=== PATIENT | female | born 1965 | race Caucasian/White ===

== ENCOUNTER 2016-07-01 19:25 | Emergency (ER) | payer MEDICAID ==
[~2016-07-01] VITALS: Ht 160 cm; Wt 65.8 kg
[~2016-07-01 19:25] MED LIST: IBUPROFEN800 MG PO; INSULIN HUMA100 U/ML IJ; NOVOLIN R100 U/ML SUBQ
[2016-07-01 19:36] VITALS: BP 169/93
--- NOTE | 2016-07-01 20:26 | NUR ---
Patient ambulated to bed 08.
[2016-07-01] MEDS ORDERED: HYDROcodone/APAP 5/325 MG 1 TAB TAB PO ONE (20:30)
--- NOTE | 2016-07-01 20:49 | NUR ---
50Y F PRESENTED IN ER C/O OF PAIN TO RT MID FINGER. PT DONT KNOW WHAT HAPPENED TO IT. PAIN 10/10 IN SCALE.
--- NOTE | 2016-07-01 21:30 | NUR ---
Patient discharged with v/s stable. Written and verbal after care instructions given and explained BY ANNE Mandel Patient alert, oriented and verbalized understanding of instructions. Ambulatory with steady gait. All questions addressed prior to discharge. ID band removed. Patient advised to follow up with PMD. Rx of NORCO given. Patient educated on indication of medication including possible reaction and side effects. Opportunity to ask questions provided and answered.
[2016-07-01 21:31] VITALS: BP 148/87
== END 2016-07-01 21:30 | disposition home or self-care (01) ==
LOC: MED 19:25
DX: M79.644 Pain in right finger(s) (principal); E11.9 Type 2 diabetes mellitus without complications

== ENCOUNTER 2016-10-30 07:27 | Emergency (ER) | payer MEDICAID ==
[~2016-10-30] VITALS: Ht 157.5 cm; Wt 79.0 kg
[~2016-10-30 07:27] MED LIST changes: -IBUPROFEN800 MG PO; -INSULIN HUMA100 U/ML IJ; -NOVOLIN R100 U/ML SUBQ; +NOVR SUBQ
[2016-10-30 07:48] VITALS: BP 156/87
[2016-10-30] MEDS ORDERED: NACL 0.9% 1,000 ML IV SCH (07:51)
[2016-10-30] MEDS ORDERED: LIDOCAINE VISCOUS 2% 20 ML UDC PO ONE (07:55)
[2016-10-30] MEDS ORDERED: FAMOTIDINE 20 MG/2 ML VIAL IVP ONE (07:55)
[2016-10-30] MEDS ORDERED: BELLADONNA/PHENOBARBITAL 1 TAB PO ONE (07:55)
[2016-10-30] MEDS ORDERED: ONDANSETRON 4 MG/2 ML VIAL IVP ONE ×2 (07:55→08:45)
[2016-10-30] MEDS ORDERED: ALUMINUM HYD/MAG/SIMETHICONE 30 ML UDC PO ONE (07:55)
--- NOTE | 2016-10-30 07:58 | NUR ---
Patient ambulated to bed 04.
--- NOTE | 2016-10-30 08:00 | NUR ---
PATIENT PRESENTS TO ED WITH C/O EPIGASTRIC PAIN X 4 DAYS---WORSE AT NIGHT WHEN LAYING DOWN, HX---GASTRITIS, DM, RX---MOTRIN, INSULIN . DENIES DIARRHEA; SKIN IS PINK/WARM/DRY; AAOX4 WITH EVEN AND STEADY GAIT; LUNGS CLEAR BL; HR EVEN AND REGULAR; PT DENIES ANY FEVER, CP, SOB, OR COUGH AT THIS TIME; PATIENT STATES PAIN OF 9/10 AT THIS TIME; VSS; PATIENT POSITIONED FOR COMFORT; HOB ELEVATED; BEDRAILS UP X2; BED DOWN. ER MD MADE AWARE OF PT STATUS.
[2016-10-30 08:10] LABS: BASOPHILS # (AUTO) 0.1 K/uL (0.00-0.22); EOSINOPHILS # (AUTO) 0.1 K/uL (0-0.4); EOSINOPHILS % (AUTO) 1.3 % (0.0-4.0); HEMATOCRIT 45.4 % (36-48); HEMOGLOBIN 14.9 g/dL (12.0-16.0); LYMPHOCYTES # (AUTO) 2.7 K/uL (2.5-16.5); LYMPHOCYTES % (AUTO) 26.6 % (20.5-51.1); MEAN CORPUSCULAR HEMOGLOBIN 29 pg (27-31); MEAN CORPUSCULAR HGB CONC 33 g/dL (33-37); MEAN CORPUSCULAR VOLUME 89 fL (80-94); MONOCYTES # (AUTO) 0.6 K/uL (0.8-1.0); MONOCYTES % (AUTO) 6.3 % (1.7-9.3); NEUTROPHILS # (AUTO) 6.5 K/uL (1.8-7.7); NEUTROPHILS % (AUTO) 64.8 % (42.2-75.2); PLATELET COUNT (AUTO) 246 K/uL (140-450); RED BLOOD CELL COUNT(AUTO) 5.11 MIL/uL (4.20-5.40); RED CELL DISTRIBUTION WIDTH 12.5 % (11.6-13.7)
[2016-10-30 08:12] LABS: APPEARANCE,URINE CLEAR (CLEAR); BILIRUBIN,URINE NEGATIVE (NEGATIVE); BLOOD, URINE TRACE-L (NEGATIVE); COLOR,URINE YELLOW (YELLOW); LEUKOCYTE ESTERASE ,URINE NEGATIVE (NEGATIVE); NITRITE, URINE NEGATIVE (NEGATIVE); PROTEIN,URINE NEGATIVE (NEGATIVE); UGLUCOSE 3+ (NEGATIVE); UROBILINOGEN,URINE 0.2 EU/dL (0.2 - 1)
[2016-10-30] MEDS ORDERED: DICYCLOMINE HCL LIQUID 10 MG/5 ML UDC PO ONE (08:30)
[2016-10-30 08:45] LABS: ALBUMIN 3.9 g/dL (3.4-5.0); CALCIUM 8.9 mg/dL (8.5-10.1); CARBON DIOXIDE 27.6 mmol/L (21-32); CREATININE 0.9 mg/dL (0.6-1.3); POTASSIUM 3.6 mmol/L (3.5-5.1); TOTAL BILIRUBIN 0.8 mg/dL (0.0-1.0); TOTAL PROTEIN, SERUM 8.6 g/dL (6.4-8.2)
--- NOTE | 2016-10-30 08:47 | NUR ---
2ND 4MG ZOFRAN GIVEN VIA IV LEFT AC 20, PT REFUSE GI COCKTAIL AT THIS TIME, DR RUIZ AWARE
[2016-10-30 09:13] LABS: BACTERIA,URINE RARE /HPF (None Seen); RBC,URINE 0-5 (RARE) /HPF (0-5); SQUAMOUS EPITHELIAL CELL,UR 0-3 (FEW) /LPF (0-3 (FEW)); WBC,URINE 0-5 (RARE) /HPF (0-5)
[2016-10-30] MEDS ORDERED: HYDROmorphone 1 MG/ML AMP IVP ONE (09:40)
--- NOTE | 2016-10-30 09:45 | NUR ---
PT EDUCATED ON GI COCKTAIL MEDS WITH DR RUIZ PT REFUSED MEDS
--- NOTE | 2016-10-30 11:00 | NUR ---
PATIENT FEEELING MUCH BETTER. NO N/V
[2016-10-30 11:01] VITALS: BP 132/75
--- NOTE | 2016-10-30 11:01 | NUR ---
Patient discharged with v/s stable. Written and verbal after care instructions given and explained. Patient alert, oriented and verbalized understanding of instructions. Ambulatory with steady gait. All questions addressed prior to discharge. ID band removed. Patient advised to follow up with PMD. Rx of BENTYL,RANITIDINE given. Patient educated on indication of medication including possible reaction and side effects. Opportunity to ask questions provided and answered.
== END 2016-10-30 11:01 | disposition home or self-care (01) ==
LOC: MED 07:27
DX: R10.13 Epigastric pain (principal); E11.9 Type 2 diabetes mellitus without complications; Z87.19 Personal history of other diseases of the digestive system; K21.9 Gastro-esophageal reflux disease without esophagitis
CPT/HCPCS: 36415; 80053; 81001; 81025; 82150; 82948; 83690; 85025; 96361; 96374; 96375; 96376; 99285; J1170; J2405; J3490

== ENCOUNTER 2018-05-22 15:00 | Emergency (ER) | payer MEDICAID ==
[~2018-05-22] VITALS: Ht 154.9 cm; Wt 76.7 kg
[~2018-05-22 15:00] MED LIST changes: +LANTUS SUBQ; -NOVR SUBQ
[2018-05-22 15:04] VITALS: BP 146/86
[2018-05-22] MEDS ORDERED: PROMETHAZINE 25 MG/ML VIAL IM ONE (15:30)
[2018-05-22] MEDS ORDERED: KETOROLAC 60 MG/2 ML VIAL IM ONE (15:30)
[2018-05-22] MEDS ORDERED: METOCLOPRAMIDE 10 MG/2 ML INJ VIAL IM ONE (17:15)
[2018-05-22 18:17] VITALS: BP 138/75
== END 2018-05-22 18:18 | disposition home or self-care (01) ==
LOC: MED 15:00
DX: G44.209 Tension-type headache, unspecified, not intractable (principal); R42 Dizziness and giddiness; E11.9 Type 2 diabetes mellitus without complications; K21.9 Gastro-esophageal reflux disease without esophagitis; Z79.4 Long term (current) use of insulin
CPT/HCPCS: 70450; 96372; 99284; J1885; J2550; J2765

== ENCOUNTER 2018-09-21 09:00 | Emergency (ER) | payer MEDICAID ==
[~2018-09-21] VITALS: Ht 157.5 cm; Wt 74.8 kg
--- NOTE | 2018-09-21 09:07 | NUR ---
Patient ambulated to bed 4. RN evaluating patient at bedside.
--- NOTE | 2018-09-21 09:09 | NUR ---
Dr. Starr evaluating patient at bedside.
[2018-09-21 09:10] VITALS: BP 132/74
--- NOTE | 2018-09-21 09:15 | NUR ---
52 Y.O F BIB SELF C/O 02/28 SHARP RIGHT LOWER BACK PAIN RADIATING TO THE RIGHT LOWER EXTREMITY. DENIES N/V/D. AFEBRILE. DENIES DYSURIA. PMH OF KIDNEY STONES, DM. RX REGULAR INSULIN.
[2018-09-21] MEDS ORDERED: ONDANSETRON 4 MG/2 ML VIAL IVP ONE (09:45)
[2018-09-21] MEDS ORDERED: KETOROLAC 15 MG/ML VIAL IVP ONE (09:45)
[2018-09-21 10:01] LABS: BASOPHILS % (AUTO) 0.6 % (0.0-2.0); EOSINOPHILS # (AUTO) 0.1 K/uL (0-0.4); EOSINOPHILS % (AUTO) 1.5 % (0.0-4.0); HEMATOCRIT 38.7 % (36-48); HEMOGLOBIN 13.4 g/dL (12.0-16.0); LYMPHOCYTES # (AUTO) 1.7 K/uL (2.5-16.5); LYMPHOCYTES % (AUTO) 24.2 % (20.5-51.1); MEAN CORPUSCULAR HEMOGLOBIN 31 pg (27-31); MEAN CORPUSCULAR HGB CONC 35 g/dL (33-37); MONOCYTES # (AUTO) 0.5 K/uL (0.8-1.0); MONOCYTES % (AUTO) 7.1 % (1.7-9.3); NEUTROPHILS # (AUTO) 4.7 K/uL (1.8-7.7); NEUTROPHILS % (AUTO) 66.6 % (42.2-75.2); PLATELET COUNT (AUTO) 229 K/uL (140-450); RED BLOOD CELL COUNT(AUTO) 4.35 MIL/uL (4.20-5.40); RED CELL DISTRIBUTION WIDTH 13.3 % (11.6-13.7)
[2018-09-21 10:06] LABS: APPEARANCE,URINE CLEAR (CLEAR); BILIRUBIN,URINE NEGATIVE (NEGATIVE); BLOOD, URINE NEGATIVE (NEGATIVE); COLOR,URINE YELLOW (YELLOW); LEUKOCYTE ESTERASE ,URINE NEGATIVE (NEGATIVE); NITRITE, URINE NEGATIVE (NEGATIVE); PH,URINE 6.5 (5.0-9.0); UGLUCOSE 2+ (NEGATIVE)
--- NOTE | 2018-09-21 10:10 | NUR ---
PT TO CT VIA W/C IN STABLE CONDITION
[2018-09-21 10:19] LABS: ALBUMIN 3.4 g/dL (3.4-5.0); ANION GAP 10.9 (8-16); CREATININE 0.8 mg/dL (0.6-1.3); POTASSIUM 3.9 mmol/L (3.5-5.1); TOTAL BILIRUBIN 0.3 mg/dL (0.0-1.0)
[2018-09-21 12:10] VITALS: BP 128/68
== END 2018-09-21 12:10 | disposition home or self-care (01) ==
LOC: MED 09:00
DX: N20.0 Calculus of kidney (principal); E11.9 Type 2 diabetes mellitus without complications; K21.9 Gastro-esophageal reflux disease without esophagitis; Z79.4 Long term (current) use of insulin
CPT/HCPCS: 36415; 74176; 80053; 81003; 81025; 83690; 85025; 96374; 96375; 99284; J1885; J2405

== ENCOUNTER 2018-09-29 14:38 | Emergency (ER) | payer MEDICAID ==
[~2018-09-29] VITALS: Ht 157.5 cm; Wt 85.7 kg
[2018-09-29 14:43] VITALS: BP 161/84
--- NOTE | 2018-09-29 14:47 | NUR ---
Patient ambulated to bed 2. RN evaluating patient at bedside.
[2018-09-29] MEDS ORDERED: MORPHINE SULFATE 2 MG/ML SYR IVP ONE (15:00)
[2018-09-29] MEDS ORDERED: NACL 0.9% 500 ML IV ONE (15:00)
[2018-09-29] MEDS ORDERED: ONDANSETRON 4 MG/2 ML VIAL IVP ONE (15:00)
--- NOTE | 2018-09-29 15:15 | NUR ---
PT IS A 52 Y/O FEMALE WHO PRESENTS TO THE ED C/O BILATERAL EAR PAIN. PT STATES THAT SHE HAS BILATERAL EAR PAIN X2 DAYS AND HEARS A NOISE INSIDE. NO FOREIGN OBJECTS OR REDNESS NOTED ON INSPECTION. PT REPORTS 8/10 ACHING BILATERAL EAR PAIN THAT DOES NOT RADIATE. PT DENIES CP, SOB, N/V/D. PT AWAKE AND ALERT, RR EVEN/UNLABORED. PT REPOSITIONED FOR COMFORT, BED IN LOWEST POSITION. ER MD DR. SIN NOTIFIED. WILL CONTINUE TO MONITOR. PMH--LITA FELIZ
--- NOTE | 2018-09-29 15:30 | NUR ---
PATIENT RESTING IN BED; NO SIGNS OF DISTRESS.
--- NOTE | 2018-09-29 15:55 | NUR ---
DR. SIN SPEAKING WITH PATIENT.
--- NOTE | 2018-09-29 15:56 | NUR ---
PATIENT STATES THAT DAUGHTER WILL DRIVE HER HOME.
[2018-09-29 16:00] VITALS: BP 152/88
--- NOTE | 2018-09-29 16:00 | NUR ---
Patient discharged with v/s stable. Written and verbal after care instructions given and explained. Patient alert, oriented and verbalized understanding of instructions. Ambulatory with steady gait. All questions addressed prior to discharge. ID band removed. Patient advised to follow up with PMD. Rx of TRAMADOL 50MG, MOTRIN 800MG AND ZOFRAN 4MG given. Patient educated on indication of medication including possible reaction and side effects. Opportunity to ask questions provided and answered.
== END 2018-09-29 16:00 | disposition home or self-care (01) ==
LOC: MED 14:38
DX: R51 Headache (principal); H92.03 Otalgia, bilateral; E11.9 Type 2 diabetes mellitus without complications; K21.9 Gastro-esophageal reflux disease without esophagitis; Z79.4 Long term (current) use of insulin
CPT/HCPCS: 36415; 70450; 87040; 96374; 96375; 99284; J2270; J2405; J7030

== ENCOUNTER 2018-11-01 13:41 | Emergency (ER) | payer MEDICAID ==
[~2018-11-01] VITALS: Ht 157.5 cm; Wt 74.8 kg
[2018-11-01 13:49] VITALS: BP 145/77
--- NOTE | 2018-11-01 13:50 | NUR ---
TO LOBBY WITH VSS AWAITING BED IN DEPT.
--- NOTE | 2018-11-01 13:57 | NUR ---
TO ED 11 WITH STEADY GAIT.
--- NOTE | 2018-11-01 13:59 | NUR ---
PT TO ED WITH C/O LOWER BACK PAIN X 1 WEEK S/P FALL. PT DENIES LOC. +ROM. ABLE TO AMBULATE WITHOUT ASSIST. NO DEFORMITY NOTED. PT PLACED INTO BED, PENDING MD REDDY.
--- NOTE | 2018-11-01 13:59 | NUR ---
DR. MODI BEDSIDE EVALUATING PT
[2018-11-01] MEDS ORDERED: HYDROcodone/APAP 5/325 MG 1 TAB TAB PO ONE (14:15)
[2018-11-01 16:39] VITALS: BP 138/72
== END 2018-11-01 16:54 | disposition home or self-care (01) ==
LOC: MED 13:41
DX: M54.5 Low back pain (principal); E11.9 Type 2 diabetes mellitus without complications; K21.9 Gastro-esophageal reflux disease without esophagitis; Z79.4 Long term (current) use of insulin; Z87.442 Personal history of urinary calculi
CPT/HCPCS: 72100; 99283

== ENCOUNTER 2018-11-30 10:00 | Emergency (ER) | payer MEDICAID ==
[~2018-11-30] VITALS: Ht 157.5 cm; Wt 87.1 kg
[2018-11-30 10:05] VITALS: BP 163/89
--- NOTE | 2018-11-30 10:11 | NUR ---
52 Y FEMALE BIB SELF C/O LT FLANK PAIN X1 MONTH. CONSTANT SHARP PAIN AT 10/10 THAT RADIATES TO BACK. +NAUSEA. -FEVER OR DIARRHEA. DENIES DYSURIA. SAW PCP ON MONDAY WAS GIVEN IBUPROFEN. URINE CLEAR AND COLORED YELLOW. BP 163/89. AA0X4. BED IS DOWN, LOCKED, BED RAIL X 1, ERMD TO SEE PT. MEDHX:DM RX:INSULIN
--- NOTE | 2018-11-30 10:14 | NUR ---
accu check [id number]. completed by robin harris
[2018-11-30] MEDS ORDERED: IBUP-2213 PO (10:40)
--- NOTE | 2018-11-30 11:00 | NUR ---
Dr. Garcia evaluating patient at bedside.
[2018-11-30] MEDS ORDERED: NACL 0.9% 1,000 ML IV SCH (11:01)
[2018-11-30] MEDS ORDERED: KETOROLAC 30 MG/ML VIAL IVP ONE (11:05)
--- NOTE | 2018-11-30 11:06 | NUR ---
PT BEING TAKEN TO CT VIA WHEELCHAIR
--- NOTE | 2018-11-30 11:06 | NUR ---
Patient taken to CT scan via wheelchair by tech.
--- NOTE | 2018-11-30 11:13 | NUR ---
PT RETURNED FROM CT
--- NOTE | 2018-11-30 11:20 | NUR ---
20 G R THUMB INSERTED. LABS DRAWN BEDSIDE AND HANDED TO TRAVEL RN OR
[2018-11-30 11:43] LABS: BASOPHILS % (AUTO) 0.4 % (0.0-2.0); EOSINOPHILS # (AUTO) 0.1 K/uL (0-0.4); EOSINOPHILS % (AUTO) 1.1 % (0.0-4.0); HEMATOCRIT 39.5 % (36-48); HEMOGLOBIN 13.7 g/dL (12.0-16.0); LYMPHOCYTES # (AUTO) 2.6 K/uL (2.5-16.5); LYMPHOCYTES % (AUTO) 32.4 % (20.5-51.1); MEAN CORPUSCULAR HEMOGLOBIN 31 pg (27-31); MEAN CORPUSCULAR HGB CONC 35 g/dL (33-37); MEAN CORPUSCULAR VOLUME 88.3 fL (80-94); MONOCYTES # (AUTO) 0.5 K/uL (0.8-1.0); MONOCYTES % (AUTO) 5.8 % (1.7-9.3); NEUTROPHILS # (AUTO) 4.8 K/uL (1.8-7.7); NEUTROPHILS % (AUTO) 60.3 % (42.2-75.2); PLATELET COUNT (AUTO) 232 K/uL (140-450); RED BLOOD CELL COUNT(AUTO) 4.47 MIL/uL (4.20-5.40); RED CELL DISTRIBUTION WIDTH 13.6 % (11.6-13.7); WHITE BLOOD COUNT (AUTO) 7.9 K/uL (4.8-10.8)
[2018-11-30 11:58] LABS: ALBUMIN 3.5 g/dL (3.4-5.0); ANION GAP 15.1 (8-16); CARBON DIOXIDE 25.6 mmol/L (21-32); CREATININE 0.8 mg/dL (0.6-1.3); POTASSIUM 3.7 mmol/L (3.5-5.1); TOTAL BILIRUBIN 0.4 mg/dL (0.0-1.0)
--- NOTE | 2018-11-30 12:11 | NUR ---
PT C/O PAIN 02/28. DR SHARMA NOTIFIED.
[2018-11-30 12:14] VITALS: BP 120/70
[2018-11-30] MEDS ORDERED: MORPHINE SULFATE 4 MG/ML SYR IVP ONE (12:15)
[2018-11-30 12:17] LABS: APPEARANCE,URINE CLEAR (CLEAR); BILIRUBIN,URINE NEGATIVE (NEGATIVE); BLOOD, URINE NEGATIVE (NEGATIVE); COLOR,URINE YELLOW (YELLOW); LEUKOCYTE ESTERASE ,URINE NEGATIVE (NEGATIVE); NITRITE, URINE NEGATIVE (NEGATIVE); PH,URINE 6.5 (5.0-9.0); UGLUCOSE 2+ (NEGATIVE)
--- NOTE | 2018-11-30 12:28 | NUR ---
MORPHINE IVP ADMINISTERED
[2018-11-30 12:35] LABS: WBC,URINE 0-5 /HPF (0-5)
[2018-11-30 12:36] LABS: RBC,URINE NONE SEEN /HPF (0-5)
--- NOTE | 2018-11-30 13:55 | NUR ---
Patient discharged BY DR SHARMA. Patient alert AND Ambulatory with steady gait. ID band removed. Rx of NAPROSYN given.
== END 2018-11-30 13:55 | disposition home or self-care (01) ==
LOC: MED 10:00
DX: N20.0 Calculus of kidney (principal); E11.9 Type 2 diabetes mellitus without complications; K21.9 Gastro-esophageal reflux disease without esophagitis; Z87.442 Personal history of urinary calculi; Z79.4 Long term (current) use of insulin; Z79.899 Other long term (current) drug therapy
CPT/HCPCS: 36415; 74176; 80053; 81001; 81025; 85025; 96374; 96375; 99284; J1885; J2270; J7030

== ENCOUNTER 2018-12-04 19:21 | Emergency (ER) | payer MEDICAID ==
[~2018-12-04] VITALS: Ht 154.9 cm; Wt 86.4 kg
[~2018-12-04 19:21] MED LIST changes: +IBUP-2213 PO
[2018-12-04 19:25] VITALS: BP 153/78
--- NOTE | 2018-12-04 19:25 | NUR ---
PATIENT TRIAGED. VSS AT THIS TIME. SENT TO ER LOBBY.
--- NOTE | 2018-12-04 19:26 | NUR ---
PATIENT GIVEN URINE CUP FOR SAMPLE. PT UNABLE TO VOID AT THIS TIME.
--- NOTE | 2018-12-04 20:30 | NUR ---
PT AMBULATED TO BED 09.
[2018-12-04] MEDS ORDERED: MORPHINE SULFATE 4 MG/ML SYR IM ONE (20:50)
[2018-12-04] MEDS ORDERED: ONDANSETRON 4 MG ODT PO ONE (20:50)
[2018-12-04 21:09] LABS: BASOPHILS % (AUTO) 0.4 % (0.0-2.0); EOSINOPHILS # (AUTO) 0.2 K/uL (0-0.4); EOSINOPHILS % (AUTO) 2.2 % (0.0-4.0); HEMATOCRIT 38.9 % (36-48); HEMOGLOBIN 13.2 g/dL (12.0-16.0); LYMPHOCYTES # (AUTO) 2.6 K/uL (2.5-16.5); LYMPHOCYTES % (AUTO) 31.5 % (20.5-51.1); MEAN CORPUSCULAR HEMOGLOBIN 30 pg (27-31); MEAN CORPUSCULAR HGB CONC 34 g/dL (33-37); MEAN CORPUSCULAR VOLUME 88.2 fL (80-94); MONOCYTES # (AUTO) 0.7 K/uL (0.8-1.0); MONOCYTES % (AUTO) 8.1 % (1.7-9.3); NEUTROPHILS # (AUTO) 4.8 K/uL (1.8-7.7); NEUTROPHILS % (AUTO) 57.8 % (42.2-75.2); PLATELET COUNT (AUTO) 227 K/uL (140-450); RED BLOOD CELL COUNT(AUTO) 4.41 MIL/uL (4.20-5.40); RED CELL DISTRIBUTION WIDTH 13.9 % (11.6-13.7); WHITE BLOOD COUNT (AUTO) 8.4 K/uL (4.8-10.8)
--- NOTE | 2018-12-04 21:20 | NUR ---
53/F PRESENTS TO ED, C/O INTERMITTENT BURNING EPIGASTRIC PAIN RADIATING TO R SIDE ABD, X1 WEEK. REPORTS NAUSEA. PT DENIES FEVER/CHILLS, VOMITING, CONSTIPATION, DIARRHEA OR DYSURIA. PT AWAKE AND ALERT, SKIN NORMAL WARM AND DRY, RR EVEN AND UNLABORED. LUNG SOUNDS CLEAR BL. BS ACTIVE X4, ABD SOFT ROUND TENDER TO EPIGASTRIC AND R SIDE OF ABD. HX DM, OTC IBUPROFEN WITHOUT RELIEF
--- NOTE | 2018-12-04 21:20 | NUR ---
PT ATTEMPTING TO VOMIT/DRY HEAVING, ZOFRAN ODT GIVEN ORDERED. WILL ADMINISTERED GI COCKTAIL WHEN VOMITING RESOLVES
[2018-12-04] MEDS: DICYCLOMINE HCL LIQUID 20 MG, ALUMINUM HYD/MAG/SIMETHICONE 30 ML, LIDOCAINE VISCOUS 2% ... PO ONE ×6 (21:21→22:10)
--- NOTE | 2018-12-04 21:22 | NUR ---
PT WAS SEEN 4 DAYS AGO, DX RENAL STONES
[2018-12-04 21:23] LABS: ANION GAP 11.4 (8-16); POTASSIUM 3.4 mmol/L (3.5-5.1)
[2018-12-04 21:27] LABS: ALBUMIN 3.3 g/dL (3.4-5.0); TOTAL BILIRUBIN 0.3 mg/dL (0.0-1.0)
[2018-12-04] MEDS ORDERED: LORazepam 2 MG/ML VIAL IM ONE (22:00)
--- NOTE | 2018-12-04 22:10 | NUR ---
PT REPORTS IMPROVEMENT IN NAUSEA, ABLE TO TOLERATE JUICE, ADMINISTERED GI COCKTAIL WITH EDUCATION. NO ACTIVE VOMITING NOTED, PT ABLE TO TOLERATE MED. ALSO ADMINISTERED ATIVAN IM WITH EDUCATION, PT TOLERATED WELL.
--- NOTE | 2018-12-04 22:32 | NUR ---
PT REPORTS IMPROVEMENT IN NAUSEA AND ABD PAIN. DR ZACARIAS MADE AWARE.
[2018-12-04 22:33] VITALS: BP 112/75
--- NOTE | 2018-12-04 22:33 | NUR ---
Patient discharged with v/s stable. Written and verbal after care instructions given and explained. Patient alert, oriented and verbalized understanding of instructions. Ambulatory with steady gait. All questions addressed prior to discharge. ID band removed. Patient advised to follow up with PMD. Rx of NORCO, COLACE given. Patient educated on indication of medication including possible reaction and side effects. Opportunity to ask questions provided and answered.
== END 2018-12-04 22:33 | disposition home or self-care (01) ==
LOC: MED 19:21
DX: R10.13 Epigastric pain (principal); R11.2 Nausea with vomiting, unspecified; E11.9 Type 2 diabetes mellitus without complications; K21.9 Gastro-esophageal reflux disease without esophagitis; Z79.4 Long term (current) use of insulin; Z79.899 Other long term (current) drug therapy; Z88.8 Allergy status to other drugs, medicaments and biological substances
CPT/HCPCS: 36415; 80053; 81002; 83690; 84484; 85025; 93005; 96372; 99284; J2060; J2270; Q0162

== ENCOUNTER 2019-07-05 08:24 | Emergency (ER) | payer MEDICAID ==
[~2019-07-05] VITALS: Ht 152.4 cm; Wt 87.1 kg
[2019-07-05 08:36] VITALS: BP 137/74
--- NOTE | 2019-07-05 08:42 | NUR ---
PATIENT AMBULATED WITH STEADY GAIT TO BED 5.
--- NOTE | 2019-07-05 08:50 | NUR ---
53YO F C/O LEFT ARM AND SHOULDER PAIN X 1 WEEK. PT STATES BURNING PAIN OF 10/10 RADIATING TO HER LOWER BACK AND FLANK AREAS. PT TOOK TYLENOL, WHICH PROVIDED NO RELIEF. DENIES ANY TRAUMA OR INJURY. NO CHEST PAIN, NO . VSS. PATIENT POSITIONED IN BED COMFORTABLY. ERMD MADE AWARE OF PT STATUS. PMH: DM MEDS: INSULIN ALLERGY: IBUPROFEN, NAPROXEN
[2019-07-05] MEDS ORDERED: DEXAMETHASONE 4 MG/ML VIAL PO ONE (09:00)
[2019-07-05] MEDS ORDERED: CYCLOBENZAPRINE 10 MG TAB PO ONE (09:00)
[2019-07-05] MEDS ORDERED: ONDANSETRON 4 MG ODT PO ONE (09:00)
[2019-07-05] MEDS ORDERED: MORPHINE SULFATE 10 MG/ML VIAL IM ONE (09:00)
[2019-07-05] MEDS ORDERED: ACETAMINOPHEN 325 MG TAB PO ONE (09:20)
--- NOTE | 2019-07-05 09:34 | NUR ---
PT GIVEN ORDERED MEDICATIONS, REFUSED TYLENOL, STATED SHE TOOK IT ALLREADY THIS MORNING PRIOR TO ED ARRIVAL. PT TOLERATED MEDICAITON WELL, WILL CONTINUE TO MONITOR.
--- NOTE | 2019-07-05 10:12 | NUR ---
PT RESTING COMFORTABLY, VSS. PT STATES PAIN HAS GONE DOWN TO 5/10. PT GIVEN BLANKET, LIGHTS DIMMED.
[2019-07-05] MEDS ORDERED: NACL 0.9% 1,000 ML IV ONE (11:20)
[2019-07-05] MEDS ORDERED: MORPHINE SULFATE 4 MG/ML SYR IVP ONE (11:20)
[2019-07-05 11:40] LABS: BASOPHILS % (AUTO) 0.6 % (0.0-2.0); EOSINOPHILS # (AUTO) 0.1 K/uL (0-0.4); EOSINOPHILS % (AUTO) 1.1 % (0.0-4.0); HEMATOCRIT 42.1 % (36-48); HEMOGLOBIN 14.4 g/dL (12.0-16.0); LYMPHOCYTES # (AUTO) 1.2 K/uL (2.5-16.5); LYMPHOCYTES % (AUTO) 14.5 % (20.5-51.1); MEAN CORPUSCULAR HEMOGLOBIN 31 pg (27-31); MEAN CORPUSCULAR HGB CONC 34 g/dL (33-37); MEAN CORPUSCULAR VOLUME 91.6 fL (80-94); MONOCYTES # (AUTO) 0.2 K/uL (0.8-1.0); MONOCYTES % (AUTO) 2.5 % (1.7-9.3); NEUTROPHILS # (AUTO) 6.5 K/uL (1.8-7.7); NEUTROPHILS % (AUTO) 81.3 % (42.2-75.2); PLATELET COUNT (AUTO) 232 K/uL (140-450); WHITE BLOOD COUNT (AUTO) 7.9 K/uL (4.8-10.8)
[2019-07-05 11:48] LABS: ANION GAP 11.1 (8-16); CARBON DIOXIDE 27.1 mmol/L (21-32); CREATININE 0.8 mg/dL (0.6-1.3); POTASSIUM 4.2 mmol/L (3.5-5.1)
[2019-07-05 11:54] LABS: ALBUMIN 3.6 g/dL (3.4-5.0); TOTAL BILIRUBIN 0.3 mg/dL (0.0-1.0)
--- NOTE | 2019-07-05 12:43 | NUR ---
PT AMBULATED TO RESTROOM W/O DIFFICULTY. PT STATED NO PAIN AT THIS TIME.
[2019-07-05 14:19] VITALS: BP 124/72
--- NOTE | 2019-07-05 14:19 | NUR ---
Patient discharged with v/s stable. Written and verbal after care instructions given and explained. Patient alert, oriented and verbalized understanding of instructions. Ambulatory with steady gait. All questions addressed prior to discharge. ID band removed. Patient advised to follow up with PMD. Rx of FLEXERIL, TRAMADOL given. Patient educated on indication of medication including possible reaction and side effects. Opportunity to ask questions provided and answered.
== END 2019-07-05 14:19 | disposition home or self-care (01) ==
LOC: MED 08:24
DX: M62.830 Muscle spasm of back (principal); E11.9 Type 2 diabetes mellitus without complications; K21.9 Gastro-esophageal reflux disease without esophagitis; Z79.4 Long term (current) use of insulin; Z79.899 Other long term (current) drug therapy; Z88.6 Allergy status to analgesic agent
CPT/HCPCS: 36415; 71045; 80053; 82948; 85025; 85379; 96372; 96374; 99284; J1100; J2270; Q0092; Q0162; J7030

== ENCOUNTER 2019-07-19 13:04 | Emergency (ER) | payer MEDICAID ==
[~2019-07-19] VITALS: Ht 157.5 cm; Wt 86.2 kg
--- NOTE | 2019-07-19 13:14 | NUR ---
PT TO ER BED 8
[2019-07-19 13:19] VITALS: BP 128/81
[2019-07-19] MEDS ORDERED: NACL 0.9% 500 ML IV ONE (13:33)
--- NOTE | 2019-07-19 13:33 | NUR ---
53 Y/O FEMALE PRESENTS TO ER WITH RIGHT SIDE FLANK PAIN RATED 10/10 X 3 DAYS. PT WAS SEEN PCP 07/18/2019, BUT PAIN STILL PERSISTS. PT HAS PMH OF KIDNEY STONES. C/O RIGHT FLANK PAIN, AND TTP, AND NAUSEA. DENIES VOMITING, DIARRHEA. TOOK TYLENOL BEFORE COMING INTO ER. DENIES ANY INJURIES OR TRAUMA. WILL CONTINUE TO MONITOR, SIDE RAIL X1 PMH: DM I ALLERGIES: IBUPROFEN; NAPROXEN
[2019-07-19] MEDS ORDERED: ONDANSETRON 4 MG/2 ML VIAL IVP ONE (13:35)
[2019-07-19] MEDS ORDERED: MORPHINE SULFATE 2 MG/ML SYR IVP ONE (13:35)
--- NOTE | 2019-07-19 13:36 | NUR ---
PT TO CT VIA WHEELCHAIR
--- NOTE | 2019-07-19 13:40 | NUR ---
Meghan jara in [facility] - 07/19/19 at 1348 by [facility]SV PT TO ER BED 11
[2019-07-19 14:24] LABS: BASOPHILS % (AUTO) 0.6 % (0.0-2.0); EOSINOPHILS # (AUTO) 0.1 K/uL (0-0.4); EOSINOPHILS % (AUTO) 1.3 % (0.0-4.0); HEMATOCRIT 41.9 % (36-48); HEMOGLOBIN 14.8 g/dL (12.0-16.0); LYMPHOCYTES # (AUTO) 2.3 K/uL (2.5-16.5); MEAN CORPUSCULAR HEMOGLOBIN 32 pg (27-31); MEAN CORPUSCULAR HGB CONC 35 g/dL (33-37); MEAN CORPUSCULAR VOLUME 88.8 fL (80-94); MONOCYTES # (AUTO) 0.5 K/uL (0.8-1.0); MONOCYTES % (AUTO) 6.7 % (1.7-9.3); NEUTROPHILS # (AUTO) 4.3 K/uL (1.8-7.7); NEUTROPHILS % (AUTO) 59.4 % (42.2-75.2); PLATELET COUNT (AUTO) 244 K/uL (140-450); RED BLOOD CELL COUNT(AUTO) 4.71 MIL/uL (4.20-5.40); WHITE BLOOD COUNT (AUTO) 7.3 K/uL (4.8-10.8)
--- NOTE | 2019-07-19 14:33 | NUR ---
PT STATES DECREASED PAIN. 11/28. RESTING IN BED QUIETLY. WILL CONTINUE TO MONITOR. SIDE RAIL X2. BED IN LOW POSITION.
--- NOTE | 2019-07-19 14:57 | NUR ---
PT STATES PAIN REMAINS 11/28. RESTING IN BED QUIETLY. WILL CONTINUE TO MONITOR. SIDE RAIL X2. BED IN LOW POSITION.
[2019-07-19 14:58] LABS: APPEARANCE,URINE CLEAR (CLEAR); BILIRUBIN,URINE NEGATIVE (NEGATIVE); BLOOD, URINE 1+ (NEGATIVE); COLOR,URINE YELLOW (YELLOW); LEUKOCYTE ESTERASE ,URINE NEGATIVE (NEGATIVE); NITRITE, URINE NEGATIVE (NEGATIVE); UGLUCOSE 3+ (NEGATIVE)
--- NOTE | 2019-07-19 15:36 | NUR ---
PT STATES PAIN RATES BETWEEN 7-8/10. PT IS RESTING QUIETLY IN BED. WILL CONTINUE TO MONITOR. SIDE RAIL X1
[2019-07-19 15:41] LABS: ALBUMIN 3.9 g/dL (3.4-5.0); ANION GAP 12.1 (8-16); CARBON DIOXIDE 26.1 mmol/L (21-32); POTASSIUM 4.2 mmol/L (3.5-5.1); TOTAL BILIRUBIN 0.5 mg/dL (0.0-1.0)
[2019-07-19 16:08] LABS: RBC,URINE 0-5 /HPF (0-5); WBC,URINE NONE SEEN /HPF (0-5)
--- NOTE | 2019-07-19 16:21 | NUR ---
PT STATES HER PAIN LEVEL REMAINS 8/10, AND REPORTS ONSET OF A HEADACHE. VSS, DR. ISRAEL NOTIFIED. WILL CONTINUE TO MONITOR, SIDE RAILS X1
--- NOTE | 2019-07-19 16:30 | NUR ---
IV removed, catheter intact and site benign. Applied folded 4x4 gauze and tape to stop bleeding.
[2019-07-19 16:37] VITALS: BP 105/53
== END 2019-07-19 16:37 | disposition home or self-care (01) ==
LOC: MED 13:04
DX: M54.41 Lumbago with sciatica, right side (principal); E11.9 Type 2 diabetes mellitus without complications; K21.9 Gastro-esophageal reflux disease without esophagitis; Z88.6 Allergy status to analgesic agent; Z88.8 Allergy status to other drugs, medicaments and biological substances; Z79.899 Other long term (current) drug therapy
CPT/HCPCS: 36415; 74176; 80053; 81001; 85025; 96374; 96375; 99284; J2270; J2405; J7030

== ENCOUNTER 2019-10-03 09:28 | Emergency (ER) | payer MEDICAID ==
[~2019-10-03] VITALS: Ht 152.4 cm; Wt 89.8 kg
[2019-10-03 09:31] VITALS: BP_SYST 137; BP_SYST 139; BP_DIAS 103; BP_DIAS 72
[2019-10-03 09:42] VITALS: BP 137/72
== END 2019-10-03 10:01 | disposition home or self-care (01) ==
LOC: MED 09:28
DX: H60.92 Unspecified otitis externa, left ear (principal); E11.9 Type 2 diabetes mellitus without complications; K21.9 Gastro-esophageal reflux disease without esophagitis; M54.30 Sciatica, unspecified side; Z88.6 Allergy status to analgesic agent; Z98.890 Other specified postprocedural states; Z79.899 Other long term (current) drug therapy
CPT/HCPCS: 99283